=== PATIENT | female | born 1985 | race American Indian/Alaskan Native ===

== ENCOUNTER 2016-10-23 13:36 | Outpatient (CLI) | payer MEDICAID ==
[2016-10-23 17:07] LABS: Hematocrit 29.3 % (30.3-42.9); Hemoglobin 9.8 gm/dl (10.1-14.3); Mean Corpuscular HGB Conc 34 % (30-34); Mean Corpuscular Hemoglobin 27 pg (28-32); Mean Corpuscular Volume 79 fl (79-97); Platelet Count 159 K/mm3 (140-440); Red Blood Count 3.71 M/mm3 (3.65-5.03); Red Cell Distribution Width 17.8 % (13.2-15.2); White Blood Count 5.7 K/mm3 (4.5-11.0)
[2016-10-23 17:09] LABS: Bilirubin,Urine NEG (Negative); Blood,Urine NEG (Negative); Ketones,Urine NEG (Negative); Leukocyte Esterase,Urine TR (Negative); Nitrite,Urine NEG (Negative); Protein,Urine <15 mg/dL mg/dL (Negative); Urobilinogen,Urine < 2.0 mg/dL (<2.0)
[2016-10-23 17:29] LABS: Lactate Dehydrogenase 138 units/L (91-180); Uric Acid 3.1 mg/dL (3.5-7.6)
[2016-10-23 17:33] LABS: Alanine Aminotransferase < 5 units/L (7-56)
[2016-10-23 18:16] VITALS: BP 117/63
--- NOTE | 2016-10-24 07:55 | Ultrasound Report ---
ULTRASOUND OB LIMITED History: Rupture of membranes, leaking fluid Technique: Transabdominal ultrasound with Doppler interrogation. Gestation: Single Position: Cephalic Amniotic Fluid: Normal CRISTY = 17.4 cm Heart Rate: 128 BPM
== END 2016-10-23 18:34 | disposition home or self-care (01) ==
LOC: TRG 13:36
PROVIDERS: ATTEND Obstetrics & Gynecology
DX: O42.92 Full-term premature rupture of membranes, unspecified as to length of time between rupture and onset of labor (principal); O47.1 False labor at or after 37 completed weeks of gestation; Z3A.38 38 weeks gestation of pregnancy
CPT/HCPCS: 36415; 59025; 76815; 81001; 82565; 83615; 84450; 84460; 84550; 85027